=== PATIENT | female | born 1965 | race Two or more races ===

== ENCOUNTER 2020-10-08 19:36 | Inpatient (IN) | payer MEDICAID, OTHER ==
[~2020-10-08] VITALS: Ht 162.6 cm; Wt 67.9 kg
[2020-10-08] MEDS ORDERED: PROPOFOL 100 ML IV PRN (20:00)
[2020-10-08] MEDS ORDERED: SODIUM CHLORIDE 0.9% 1,000ML IVBOLUS ONE ×2 (20:00→20:30)
[2020-10-08] MEDS ORDERED: SODIUM CHLORIDE FLUSH 10ML SYR IVF ONE (20:00)
[2020-10-08 20:03] LABS: MEAN CORPUSCULAR HEMOGLOBIN 31.4 pg (27.0-34.8); MEAN CORPUSCULAR HGB CONC 32.2 g/dL (32.4-35.8); MEAN PLATELET VOLUME 9.6 fL (7.4-10.4); PLATELET COUNT 304 x10^3/uL (130-400); RED BLOOD COUNT 4.41 x10^6/uL (3.82-5.3); RED CELL DISTRIBUTION WIDTH 15.2 % (9.6-15.2)
[2020-10-08 20:05] LABS: INTERNATIONAL NORMALIZED RATIO 1.34 (0.93-1.1); PROTHROMBIN TIME 14.2 Seconds (9.6-11.5)
[2020-10-08 20:07] LABS: ALANINE AMINOTRANSFERASE 133 U/L (12-78); ALBUMIN 1.2 g/dL (3.4-5.0); ANION GAP 22 mmol/L (5-15); CALCIUM 8.3 mg/dL (8.5-10.1); CHLORIDE 107 mmol/L (98-107); CREATININE 2.49 mg/dL (0.55-1.02)
--- NOTE | 2020-10-08 20:15 | NUR ---
[facility] PROTOCOL HELD AT THIS TIME DUE TO PT CORE TEMP 93.5 F
[2020-10-08 20:17] LABS: ALKALINE PHOSPHATASE 110 U/L (45-117); BILIRUBIN,TOTAL 1.1 mg/dL (0.2-1.0); TOTAL PROTEIN 5.9 g/dL (6.4-8.2)
[2020-10-08 20:19] LABS: MD YES
[2020-10-08 20:25] LABS: BAND#(MANUAL) 5.34 x10^3/uL; BANDS%(MANUAL) 32 % (0-7); LYMPH#(MANUAL) 4.01 x10^3/uL (1-3.4); LYMPHS% (MANUAL) 24 % (22-44); METAMYELOCYTES# (MANUAL) 2.51 x10^3/uL (0-0); METAMYELOCYTES% (MANUAL) 15 % (0-1); MONOS#(MANUAL) 1.17 x10^3/uL (0.3-2.7); MONOS% (MANUAL) 7 % (2-9); MYELOCYTES# (MANUAL) 0.67 x10^3/uL (0-0); MYELOCYTES% (MANUAL) 4 % (0-0); REACTIVE LYMPHS # (MANUAL) 0.17 x10^3/uL (0-0); REACTIVE LYMPHS % (MANUAL) 1 % (0-0); SEG#(MANUAL) 2.84 x10^3/uL (1.8-6.8); SEGS% (MANUAL) 17 % (42-75)
[2020-10-08 20:27] LABS: <PLATELET ESTIMATE> ADEQUATE; <PLT MORPHOLOGY> NORMAL PLT MORPH; <RBC MORPHOLOGY> NORMAL; TOXIC GRAN 1+
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
[2020-10-08] MEDS ORDERED: VANCOMYCIN PER PHARMACY MC PRN (20:30)
[2020-10-08] MEDS ORDERED: NOREPINEPHRINE 8 MG in SODIUM CHLORIDE 0.9% 242 ML IV PRN (20:30)
[2020-10-08] MEDS ORDERED: PIPERACILLIN/TAZO/PMX 3.375GM 50 ML IV ONE (20:30)
[2020-10-08 20:32] LABS: FREE T4 (FREE THYROXINE) 0.94 ng/dL (0.76-1.46)
[2020-10-08] MEDS ORDERED: PIPERACILLIN/TAZO/PMX 3.375GM 50 ML ONE (20:53)
--- NOTE | 2020-10-08 20:56 | NUR ---
GEN SURG PAGED.
[2020-10-08] MEDS ORDERED: PLEASE ENTER HEIGHT AND WEIGHT MC SCH (21:00)
[2020-10-08] MEDS ORDERED: VANCOMYCIN 1,700 MG in SODIUM CHLORIDE 0.9% 250 ML IV ONE (21:00)
[2020-10-08] MEDS ORDERED: PROPOFOL 100 ML IV ONE (21:18)
[2020-10-08] MEDS ORDERED: PIPERACILLIN/TAZO/PMX 2.25GM 50 ML IVPB SCH (22:00)
[2020-10-08] MEDS ORDERED: D5%-0.9% NACL 1,000 ML IV SCH (22:00)
[2020-10-08] MEDS ORDERED: PROMETHAZINE 25 MG/ML, 1ML IM PRN (22:00)
[2020-10-08] MEDS ORDERED: ONDANSETRON 2MG/ML, 2ML IVPush PRN (22:00)
[2020-10-08] MEDS ORDERED: DAPTOMYCIN 420 MG in SODIUM CHLORIDE 0.9% 100 ML IVPB SCH (22:00)
[2020-10-08] MEDS ORDERED: hydrALAzine 20 MG/ML, 1ML IVPush PRN (22:00)
[2020-10-08] MEDS ORDERED: SODIUM CHLORIDE 0.9% 1,000 ML IV SCH (22:00)
[2020-10-08] MEDS ORDERED: ONDANSETRON ODT 4 MG PO PRN (22:00)
[2020-10-08] MEDS ORDERED: morphine SULFATE 10 MG/ML, 1ML IVPush PRN (22:00)
[2020-10-08 22:27] LABS: FREE T4 (FREE THYROXINE) 0.97 ng/dL (0.76-1.46)
[2020-10-08 22:28] VITALS: BP 91/55
--- NOTE | 2020-10-08 22:32 | NUR ---
FAMILY TRISH GLENIS [phone] RAY STANLEY [phone]
[2020-10-08] MEDS ORDERED: OMNIPAQUE 350 MG/ML, 100ML BOTTLE ONE (23:03)
[2020-10-08] MEDS ORDERED: VASOPRESSIN 20 UNIT in SODIUM CHLORIDE 0.9% 99 ML IV PRN (23:30)
[2020-10-08] MEDS ORDERED: EPINEPHRINE 5 MG in SODIUM CHLORIDE 0.9% 245 ML IV PRN (23:30)
[2020-10-09] MEDS ORDERED: PHENYLEPHRINE 50 MG in SODIUM CHLORIDE 0.9% 245 ML IV PRN
[2020-10-09] MEDS ORDERED: GLUCAGON 1 MG IM PRN
[2020-10-09] MEDS ORDERED: VASOPRESSIN 20 UNIT in SODIUM CHLORIDE 0.9% 99 ML IV PRN
[2020-10-09] MEDS ORDERED: EPINEPHRINE 5 MG in SODIUM CHLORIDE 0.9% 245 ML IV PRN
[2020-10-09] MEDS ORDERED: LACTULOSE 20 GM/30 ML UDC NG PRN
[2020-10-09] MEDS ORDERED: SENNA/DOCUSATE TABLET NG PRN
[2020-10-09] MEDS ORDERED: SENNA 176 MG/5 ML ORAL SOL NG PRN
[2020-10-09] MEDS ORDERED: BISACODYL 10 MG SUPP PR PRN
[2020-10-09] MEDS ORDERED: NOREPINEPHRINE 8 MG in SODIUM CHLORIDE 0.9% 242 ML IV PRN
[2020-10-09] MEDS ORDERED: ONDANSETRON 2MG/ML, 2ML IV PRN
[2020-10-09] MEDS ORDERED: DEXTROSE 50%, 50ML SYRINGE IVPush PRN
[2020-10-09] MEDS ORDERED: LIDOCAINE-MPF 1%, 2ML ENDO PRN
[2020-10-09] MEDS ORDERED: PHARMACY MAY ADJ FOR RENAL FX MC SCH
[2020-10-09] MEDS ORDERED: SODIUM BICARB 8.4%, 50ML SYRINGE IVPush ONE (01:00)
[2020-10-09] MEDS ORDERED: NOREPINEPHRINE 1 MG/ML, 4ML ONE (01:04)
[2020-10-09] MEDS ORDERED: NOREPINEPHRINE 32 MG in SODIUM CHLORIDE 0.9% 218 ML IV PRN (01:30)
[2020-10-09] MEDS ORDERED: SODIUM BICARB 8.4%, 50ML SYRINGE ONE (04:04)
[2020-10-09] MEDS ORDERED: CODE BLUE RESPONSE XX ONE (04:04)
[2020-10-09] MEDS ORDERED: EPINEPHRINE SYRINGE 0.1 MG/ML, 10ML ONE ×2 (04:04→11:22)
[2020-10-09] MEDS ORDERED: INSULIN REGULAR 100 UNITS/ML, 3ML VIAL SQ-INSULIN SCH ×4 (07:00)
[2020-10-09] MEDS ORDERED: INSULIN LISPRO 100 UNITS/ML, PEN SQ-INSULIN SCH ×3 (07:00)
[2020-10-09] MEDS ORDERED: PANTOPRAZOLE 40 MG IV IVPush SCH (07:30)
== END 2020-10-09 03:55 | disposition expired | DRG 710 ==
LOC: ED 21:32 → EDIP 22:00 → CCU 10-09 00:17
PROVIDERS: ADMIT Internal Medicine; ATTEND Hospitalist
PROC: 0DBN0ZZ Excision of Sigmoid Colon, Open Approach (ICD-10-PCS; 2020-10-08)
PROC: 03HY32Z Insertion of Monitoring Device into Upper Artery, Percutaneous Approach (ICD-10-PCS; 2020-10-08)
PROC: 5A1935Z Respiratory Ventilation, Less than 24 Consecutive Hours (ICD-10-PCS; 2020-10-08)
PROC: 5A12012 Performance of Cardiac Output, Single, Manual (ICD-10-PCS; 2020-10-08)
PROC: 05HY33Z Insertion of Infusion Device into Upper Vein, Percutaneous Approach (ICD-10-PCS; 2020-10-08)
PROC: B543ZZA Ultrasonography of Right Jugular Veins, Guidance (ICD-10-PCS; 2020-10-08)
PROC: 0DB80ZZ Excision of Small Intestine, Open Approach (ICD-10-PCS; principal; 2020-10-08 22:30)
DX: A41.9 Sepsis, unspecified organism (principal); J96.01 Acute respiratory failure with hypoxia; N17.0 Acute kidney failure with tubular necrosis; G93.41 Metabolic encephalopathy; K55.9 Vascular disorder of intestine, unspecified; R65.21 Severe sepsis with septic shock; J69.0 Pneumonitis due to inhalation of food and vomit; I46.9 Cardiac arrest, cause unspecified; E86.1 Hypovolemia; E87.5 Hyperkalemia; R74.01 Elevation of levels of liver transaminase levels; Z20.828 Contact with and (suspected) exposure to other viral communicable diseases; K92.0 Hematemesis; Z82.49 Family history of ischemic heart disease and other diseases of the circulatory system
CPT/HCPCS: 36415; 36600; 70450; 71045; 71260; 74177; 80053; 82803; 83036; 83605; 83735; 84100; 84439; 84443; 84478; 85025; 85610; 85730; 87040; 87077; 87081; 87186; 87635; 88307; 92950; 93005; 94002; J0171; J2543; Q9967; C1765; J2370; J7030; J7050